=== PATIENT | female | born 1945 | race Two or more races ===

== ENCOUNTER 2018-06-15 16:46 | Emergency (ER) | payer OTHER ==
[~2018-06-15] VITALS: Ht 157.5 cm; Wt 72.6 kg
[~2018-06-15 16:46] MED LIST: BACTROBAN NASAL1 GM NS; SILVADENE20 GM TP
== END 2018-06-15 17:31 | disposition home or self-care (01) ==
LOC: ER 16:46
DX: T79.8XXA Other early complications of trauma, initial encounter (principal); G89.11 Acute pain due to trauma; W18.39XA Other fall on same level, initial encounter; Y93.89 Activity, other specified; Y92.89 Other specified places as the place of occurrence of the external cause; Y99.8 Other external cause status